=== PATIENT | male | born 1975 | race African-American/Black ===

== ENCOUNTER 2019-12-03 00:18 | Outpatient (CLI) | payer OTHER, SELFPAY ==
[2019-12-03 18:07] LABS: SARS-CoV-2 RNA PCR Negative
== END 2019-12-03 00:19 | disposition home or self-care (01) ==
LOC: ANHCOVIDDT 00:28
PROVIDERS: Visit Provider Surgery
DX: Z01.818 Encounter for other preprocedural examination (principal); Z11.59 Encounter for screening for other viral diseases
CPT/HCPCS: 87635; C9803; U0003

== ENCOUNTER 2019-12-05 02:34 | Day surgery (SDC) | payer OTHER, SELFPAY ==
[2019-12-02 15:39] VITALS: BMI 41.5
--- NOTE | ~2019-12-05 | XR_ITS ---
EXAMINATION: XR fl guide central line place DATE: 12/05/2019 08:34 INDICATION: Port placement. TECHNIQUE: 2 intraoperative fluoroscopic views of the chest were obtained. I was not present. Fluoros copy exposure time was 41 seconds. COMPARISON: Chest single view 12/05/2019 FINDINGS: There is a right internal jugular port with tip in right atrium. IMPRESSION: 1. Port tip in right atrium. Reviewed, dictated and finalized at location A.
--- NOTE | ~2019-12-05 | XR_ITS ---
EXAMINATION: XR chest port-a-cath/central DATE: 12/05/2019 09:02 INDICATION: Port catheter insertion TECHNIQUE: frontal view of the chest was obtained. COMPARISON: None FINDINGS: Right internal jugular central venous port catheter with distal tip near the superior cavoatrial junc tion. Lungs are clear with no focal airspace opacities, pulmonary edema, pleural effusion or pneumoth orax. The cardiomediastinal silhouette is normal. IMPRESSION: 1. Right internal jugular central venous port catheter tip near the superior cavoatrial junction. 2. No acute cardiopulmonary disease. Reviewed, dictated and finalized at location A. IMPRESSION: 1. Right internal jugular central venous port catheter tip near the superior ca voatrial junction. 2. No acute cardiopulmonary disease.
[2019-12-05] MEDS: LACTATED RINGERS 1,000 ML 30 ML IV CONT (06:30)
[2019-12-05 06:33] LABS: Glucose Point of Care 107 (65-105)
[2019-12-05 06:43] LABS: Partial Thromboplastin Time 28.6 SECONDS (22.3-36.8)
--- NOTE | 2019-12-05 06:52 | P.PNAN_ITS ---
Anes - Initial Pre Proc Eval Procedure: Operation Date: 12/05/19 07:30 Proposed Procedures p Insertion Crystal Cath - Eddy Caldwell MD Date/Time: 12/05/19 06:52 Surgeon: Eddy Caldwell MD Pre Op Diagnosis: Colon Ca Patient Data Age: 44 Gender: M Height: 5 ft 9 in Weight: 127.46 kg Allergies Allergy/AdvReac Type Severity Reaction Status Date / Time No Known Allergies Allergy Verified 12/02/19 15:51 Home Medications Medication Instructions Recorded Confirmed Type metformin 1,000 mg PO BID 12/02/19 12/05/19 History Laboratory Tests 12/05/19 12/05/19 06:21 06:31 PT 13.0 Seconds Seconds (11.1-14.7) INR 1.0 APTT 28.6 SECONDS SECONDS (22.3-36.8) POC Capillary Glucose 107 mg/dl mg/dl (65-105) Patient hx anesthesia problems: none Family hx anesthesia problems: none [facility] Past Medical History Medical History (Updated 12/05/19 @ 06:52 by Tam Dubose MD) Diabetes KEI (obstructive sleep apnea) Social History Social History Smoking status: Never smoker Spiritual care concerns: No Anes - Eval Final PreProcedure Day of Procedure 12/05/19 06:52 Patient weight: morbidly obese Heart: regular rate and rhythm Lungs: clear to auscultation Airway: Mallampati scale class II Neurological: alert and oriented Last oral intake: >/= 8 hours ASA classification: III Emergent: no Anesthetic plan: proceed Anesthesia type and monitoring: general GIVS and standard monitoring Informed Consent: The patient's anesthetic plan and its attendant risks and benefits were discussed with the patient/family/POA. Questions were solicited and answers provided to the satisfaction of the patient/family/POA.
[2019-12-05 07:00] VITALS: BP 146/88; PULSE 72; TEMP 35.9; O2SAT 99
[2019-12-05] MEDS: KETOROLAC 15 MG/ML VIAL (*BKC) IV PUSH (07:09)
--- NOTE | 2019-12-05 07:10 | PM.HPGS ---
History of Present Illness History of Present Illness Consent: Risks, benefits, and alternatives of placement of a Port-A-Cath have been discussed and questions answered. Patient agrees to proceed with procedure. Chief complaint: Colon Ca Narrative: Beau Cuellar is a 44 year old male who has known diabetes and hypertension. He developed dark stool and then had colonoscopy in September of this year. 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 He has had about 15 lb of weight loss but is planning to proceed to chemotherapy with Dr. Vasquez and presents this time to have port placement. Review of Systems Constitutional: Constitutional: Reports no additional constitutional complaints, Reports fatigue and Denies malaise Eyes: Eyes: Denies change in vision and Denies loss of vision ENT: Reports Normal hearing present, Denies change in voice, Denies dizziness, Denies hoarseness and Denies sore throat Cardiovascular: Cardiovascular: Denies chest pain, Denies leg edema and Denies dyspnea Comments: Known history of hypertension controlled on medications Respiratory: Respiratory: Denies cough, Denies dyspnea and Denies wheezing Gastrointestinal: Gastrointestinal: Denies hematochezia, Denies change in bowel habits and Denies heartburn Genitourinary: Genitourinary: Denies urinary frequency and Denies urinary incontinence Neurologic: Reports Normal hearing present, Denies confusion, Denies dizziness, Denies loss of vision, Denies memory loss and Denies seizure-like activity Psychiatric: Psychiatric: Denies confusion, Denies depression and Denies memory loss Endocrine: Endocrine: Denies cold intolerance and Reports fatigue Comments: Type 2 diabetes mellitus on metformin Hematologic/Lymphatic: Hematologic/Lymphatic: Denies easy bleeding and Denies easy bruising Allergic/Immunologic: Allergic/Immunologic: Denies wheezing PMFSH Past Medical History Medical History (Updated 12/05/19 @ 07:14 by Eddy Caldwell MD) Diabetes (Unknown) HTN (hypertension) (Unknown) KEI (obstructive sleep apnea) Social History Social History Smoking status: Never smoker Spiritual care concerns: No Meds Home Medications and Allergies Home Medications Medication Instructions Recorded Confirmed Type metformin 1,000 mg PO BID 12/02/19 12/05/19 History Allergies Allergy/AdvReac Type Severity Reaction Status Date / Time No Known Allergies Allergy Verified 12/02/19 15:51 Exam Const: General: cooperative, healthy appearing, no acute distress, well developed and alert; No confusion Nutritional Appearance: well nourished Orientation/consciousness: patient oriented x3 and No confusion Limitations: no limitations HENMT: Head: normal to inspection, normocephalic and atraumatic Ears: hearing grossly normal bilaterally General nose exam: Normal external nose present Face and sinus: no edema Mouth: Yes Normal oral and palatal mucosa present and Yes lip normal Throat: posterior oropharynx normal Eyes: General: appearance normal, both eyes and all related structures Sclera: sclerae normal Pupils: Equal, round and reactive pupils present EOM: EOMs intact bilaterally Neck: Neck: normal visual inspection, no lymphadenopathy, trachea midline and supple Resp: Effort & Inspection: normal respiratory effort and able to speak in complete sentences Auscultation: clear to auscultation bilaterally Cardio: Jugular venous distension: no JVD Rate: regular rate Rhythm: regular rhythm GI: Inspection: normal to inspection and scar ( consistent with previous sigmoid colon resection.) GI Palp: Yes Soft to palpation, No Tenderness to palpation present (GI), No Guarding due to palpation present (GI) and No Palpable mass present A
[2019-12-05] MEDS: ceFAZolin 3 GM/D5W 100 ML 100 ML IVPB (07:31)
[2019-12-05] MEDS: BUPIVACAINE/EPINEPHRINE 0.5% 30 ML VIAL INFILTRATE (08:07)
[2019-12-05] MEDS: HEPARIN SODIUM 5,000 UNITS/ML VIAL 5000 UNITS IRRIGATION (08:07)
[2019-12-05 08:45] VITALS: BP 136/86; PULSE 89; RESP 20; O2SAT 100
--- NOTE | 2019-12-05 08:51 | PM.PROC ---
Procedure Note - Detailed Date of procedure: 12/05/19 Pre-op diagnosis: Colon Ca Procedure performed: placement of Port-A-Cath Description of procedure: Patient was seen and marked in the pre-op area prior to coming to the OR. Patient was brought to the operating room. He was placed supine on the operating table and general IV sedation was induced and an LMA was used. The nurse ict systems test engineer provided oxygen and IV sedation. Patient's head was carefully turned to the left side while in the supine position and the patient's entire neck and anterior chest on both sides was prepped and draped in the usual sterile fashion. Following this the appropriate time-out was completed confirming procedure and patient. We confirmed that all the needed equipment was present in the room. Following this the ultrasound probe was draped into the field and using the probe we carefully identified the carotid artery and jugular vein on the right neck. I marked the skin directly over the Rt. internal jugular vein. Following this, using the continuous ultrasound guidance, a Cook needle was placed through the skin into this vein. I then was able to draw back good dark blood. Once this was completed a guidewire using a J-tip was advanced through the needle and then the needle and the guidewire cover were withdrawn. C-arm fluoroscopy was used to confirm that the guidewire was nicely in the venous system. Once this was confirmed with the C - arm I preceded on by making the pocket for the port on the patient's anterior right chest approximately 3 centimeters below the clavicle overlying the chest wall. Local anesthetic was infiltrated into the skin where there was a transverse incision marked out. Incision was made and we made a pocket inferior to the incision with just a little dissection superior. The Smart port was tried in the pocket and seemed to fit well. Following this the catheter which had been placed on a tunneling device was tunneled from the port site on the anterior right chest up to the right neck where a small incision had been made with an #11 blade knife. Then the catheter was pulled through so that we would have 15 centimeters to put into the central venous system once the dilation took place. Following this we placed the dilator and sheath over the guidewire in the jugular vein and carefully dilated the tract into the central venous system. The guidewire and dilator were then removed, carefully covering the end of the sheath to prevent air embolus. The end of the catheter which had been cut off straight across and the tip checked was then inserted into the sheath and into the neck. I then carefully pulled the 2 arms of the tear-away sheath away as the assistant distribution manager held the catheter in position with a DeBakey forceps. Following this we checked the position of the catheter with C-arm fluoroscopy confirming that the tip seemed to be in the distal superior vena cava near the junction with the right atrium. I felt that it was in good position and so the rest of the catheter was pulled down toward the feet into the port site. We then measured to the appropriate position to cut the catheter to attach it to the port stem. Then the connector sealing device for the catheter port was placed onto the catheter and then the catheter cut to the appropriate length and inserted onto the stem of the port. Then the connector was advanced onto the stem over the catheter sealing it to the port. A single 3- 0 Prolene suture was also used during this to suture the connector to the port and to the underlying musculature. Following this at one other site the port was sutured to the underlying musculature with the 3-0 Proline. Both prior to connecting the catheter to the port and then using a straight Galvan needle following this connection, the port was aspirated of good dark blood and flushed with heparinized saline to keep the catheter from having any air in it and to confirm that it was still in
[2019-12-05 09:15] VITALS: BP 129/74; PULSE 74; RESP 20; O2SAT 96
--- NOTE | 2019-12-05 09:20 | SUR.PHASEII ---
0905; ICE PACK APPLIED TO RT UPPER CHEST AND NECK AREA.
[2019-12-05 09:45] VITALS: BP 123/77; PULSE 64; RESP 20
== END 2019-12-05 10:00 | disposition home or self-care (01) ==
PROVIDERS: Visit Provider Surgery
PROC: (CPT 36561; principal; 2019-12-05 07:30)
DX: C18.9 Malignant neoplasm of colon, unspecified (principal); E11.9 Type 2 diabetes mellitus without complications; G47.33 Obstructive sleep apnea (adult) (pediatric); Z79.84 Long term (current) use of oral hypoglycemic drugs; E66.01 Morbid (severe) obesity due to excess calories; Z68.41 Body mass index [BMI] 40.0-44.9, adult
CPT/HCPCS: 36561; 36415; 77001; 85610; 85730; A9270; C1788; J0690; J1644; J1885; J2250; J2704; J7030; J7120

== ENCOUNTER 2019-12-08 15:30 | Outpatient (CLI) | payer OTHER, SELFPAY ==
--- NOTE | ~2019-12-08 | CT_ITS ---
EXAMINATION: CT chest abdomen pelvis w con DATE: 12/08/2019 16:10 INDICATION: Malignant neoplasm of sigmoid colon. TECHNIQUE: Computed tomography (CT) of the chest, abdomen, and pelvis was performed with 100 mL Omnip aque 350 intravenous contrast. Automated exposure control and iterative reconstruction technique were employed. The dose-length product was 1663.00 mGy-cm. COMPARISON: None FINDINGS: CHEST CT: There is a 3 mm nodule in right upper lobe abutting the pleura, likely benign. No pleural effusion. T he heart size is normal. No pericardial effusion. There is a right internal jugular port with tip in right atrium. There are no pathologically enlarged lymph nodes. There are bridging endplate osteophyt es at multiple levels in the spine, consistent with diffuse idiopathic skeletal hyperostosis (DISH). ABDOMEN/PELVIS CT: The liver, spleen, gallbladder, pancreas, and adrenal glands are normal. There are cysts in the kidne ys measuring up to 8 mm on the right. The prostate is mildly enlarged. There is an anastomosis in the sigmoid colon. The appendix is normal. There are no dilated loops of bowel. There are no pathologica lly enlarged lymph nodes. There is no free intraperitoneal fluid. There is a right inguinal hernia co ntaining fat. Prominent fat in the left inguinal canal may be a hernia. There is mild lumbar spondylo sis. IMPRESSION: 1. No specific evidence of metastatic disease. Reviewed, dictated and finalized at location A.
== END 2019-12-08 15:31 | disposition home or self-care (01) ==
LOC: ANHIMG 15:32
PROVIDERS: PCP Internal Medicine; Visit Provider Internal Medicine Hematology & Oncology
DX: C18.7 Malignant neoplasm of sigmoid colon (principal)
CPT/HCPCS: 71260; 74177; Q9967

== ENCOUNTER 2020-03-29 08:40 | Outpatient (CLI) | payer OTHER, SELFPAY ==
[2020-03-29 17:21] LABS: Creatinine Urine 154.2 mg/dL
[2020-03-29 18:43] LABS: MALB Creatinine Ratio 353.5 mg/g (0-30); Microalbumin Urine Random 545.1 mg/L (0-16.7)
[2020-03-29 18:51] LABS: Hemoglobin A1C 7.2 % (<5.7)
[2020-03-29 18:59] LABS: Prostate Specific Antigen 1.2 ng/mL (< OR = 4.0)
== END 2020-03-29 08:41 | disposition home or self-care (01) ==
PROVIDERS: Referring Provider Family Medicine; Visit Provider Internal Medicine Hematology & Oncology
DX: E11.9 Type 2 diabetes mellitus without complications (principal); Z13.9 Encounter for screening, unspecified
CPT/HCPCS: 36415; 82043; 83036; 84153; G0103

== ENCOUNTER 2020-08-04 09:43 | Outpatient (CLI) | payer OTHER, SELFPAY ==
--- NOTE | ~2020-08-04 | CT_ITS ---
EXAMINATION: CT abdomen pelvis w con INDICATION: Malignant neoplasm of the sigmoid colon TECHNIQUE: Computed tomographic images of the abdomen and pelvis were obtained after the administrati on of 100 cc of Omnipaque 350 intravenous contrast. The dose-length product (DLP) was 1403.22 mGy-cm. Automated exposure control and iterative reconstruction technique were employed. COMPARISON: 12/08/2019 FINDINGS: The lung bases are clear. The heart size is normal. The liver, spleen, pancreas, gallbladde r, and adrenal glands are normal. Cysts of the kidneys measure up to 9 mm on the right. No pathologic ally enlarged abdominal or pelvic lymph nodes are identified. There is no free intraperitoneal gas or evidence of bowel obstruction. There are surgical changes in the sigmoid colon. An appendicolith is present in the otherwise normal appendix. There is mild lumbar spondylosis. IMPRESSION: 1. Surgical changes in the sigmoid colon without evidence of recurrent or metastatic disease. Reviewed, dictated and finalized at location A. RIAL CONTROL ASSOCIATE IMPRESSION: 1. Surgical changes in the sigmoid colon without evidence of recurrent or metas tatic disease.
[2020-08-04 10:07] LABS: Estimated Glomerular Filt Rate > 60
== END 2020-08-04 09:44 | disposition home or self-care (01) ==
PROVIDERS: PCP Family Medicine; Visit Provider Internal Medicine Hematology & Oncology
DX: C18.7 Malignant neoplasm of sigmoid colon (principal)
CPT/HCPCS: 74177; Q9967

== ENCOUNTER 2021-11-17 10:23 | Outpatient (CLI) | payer OTHER, SELFPAY ==
--- NOTE | ~2021-11-17 | CT_ITS ---
EXAMINATION: CT abdomen pelvis w con DATE: 11/17/2021 10:53 INDICATION: Malignant neoplasm of the sigmoid colon TECHNIQUE: Computed tomography (CT) of the abdomen and pelvis was performed with 100 mL Omnipaque-300 intravenous contrast. Automated exposure control and iterative reconstruction technique were employe d. The dose-length product was 1387.80 mGy-cm. COMPARISON: None FINDINGS: Lungs are clear. Normal heart size. Central venous catheter tip in the right atrium. No pericardial o r pleural effusion. Diffuse hepatic steatosis. Gallbladder, spleen, pancreas, bilateral adrenal gland s and left kidney are normal. Subcentimeter low-attenuation cyst at the upper pole of the right kidne y. Small calcified appendicolith in the midportion of the otherwise normal appendix with no periappen diceal inflammatory stranding to suggest acute appendicitis. Postoperative change of prior sigmoidect sandie with anastomotic suture line along the remaining sigmoid colon. No bowel obstruction. Bladder is normal. Mild prostatomegaly measuring 4.8 x 3.8 cm. No free intraperitoneal gas or fluid. No patholog ically enlarged abdominal or pelvic lymphadenopathy. There are bridging osteophytes at a few levels i n the visualized lower thoracic spine, consistent with diffuse idiopathic skeletal hyperostosis (DISH ). IMPRESSION: 1. Postoperative change of prior sigmoidectomy for reported colon cancer. No evident metastatic disea se. 2. Diffuse hepatic steatosis. 3. Calcified appendicolith within the normal appendix with no periappendiceal inflammatory stranding to suggest acute appendicitis. 4. Prostatomegaly. Reviewed, dictated and finalized at location B. IMPRESSION: 1. Postoperative change of prior sigmoidectomy for reported colon cancer. No ev ident metastatic disease. 2. Diffuse hepatic steatosis. 3. Calcified appendicolith within the normal appendix with no periappendiceal i nflammatory stranding to suggest acute appendicitis. 4. Prostatomegaly.
[2021-11-17 10:51] LABS: Estimated Glomerular Filt Rate > 60
== END 2021-11-17 10:24 | disposition home or self-care (01) ==
PROVIDERS: PCP Family Medicine; Visit Provider Internal Medicine Hematology & Oncology
DX: C18.7 Malignant neoplasm of sigmoid colon (principal); Z98.890 Other specified postprocedural states; K76.0 Fatty (change of) liver, not elsewhere classified; K38.1 Appendicular concretions; N40.0 Benign prostatic hyperplasia without lower urinary tract symptoms
CPT/HCPCS: 74177; Q9967

== ENCOUNTER 2022-06-01 08:59 | Outpatient (CLI) | payer OTHER, SELFPAY ==
--- NOTE | ~2022-06-01 | CT_ITS ---
CT Abdomen and Pelvis with contrast. History: Colon cancer. Spiral CT of the abdomen and pelvis was performed after the administration of intravenous contrast. 1 00 cc of Omnipaque 350 was administered intravenously without complication. Dose reduction technique was used on this scan by utilizing automated exposure control and iterative reconstruction technique. The dose-length product (DLP) was 1247.71 mGy-cm. COMPARISON: 11/17/2021 and 12/08/2019 Findings: Scans through the lung bases demonstrate mild atelectatic change. Diffuse fatty infiltration of the liver noted. The spleen, pancreas, gallbladder, left adrenal gland, and kidneys are within normal limits. Stable probable 9 mm right adrenal nodule. No evidence of aort ic aneurysm. No lymphadenopathy is seen. There is no evidence of bowel obstruction. Rectosigmoid anastomosis noted. Appendiculis present, but no evidence for acute appendicitis. Images through the pelvis were performed. Urinary bladder unremarkable. Prostate gland and seminal ve sicles are unremarkable. No ascites is seen. Impression: No evidence for active malignancy or metastatic disease. No change from prior exam. No definite recto sigmoid anastomosis, consider a prior colonic resection. Diffuse fatty infiltration of the liver. Stable probable 9 mm right adrenal nodule. Stability since November 2019 suggests benignity. Reviewed, dictated and finalized at location M. CTIOUS DISEASE PHYSICIAN Impression: No evidence for active malignancy or metastatic disease. No change from prior e xam. No definite rectosigmoid anastomosis, consider a prior colonic resection. Diffuse fatty infiltration of the liver. Stable probable 9 mm right adrenal nodule. Stability since November 2019 suggests b enignity.
== END 2022-06-01 09:00 | disposition home or self-care (01) ==
PROVIDERS: PCP Family Medicine; Visit Provider Internal Medicine Hematology & Oncology
DX: C18.7 Malignant neoplasm of sigmoid colon (principal); K76.0 Fatty (change of) liver, not elsewhere classified; E27.8 Other specified disorders of adrenal gland
CPT/HCPCS: 74177; Q9967

== ENCOUNTER 2022-11-08 08:59 | Outpatient (CLI) | payer OTHER, SELFPAY ==
--- NOTE | ~2022-11-08 | CT_ITS ---
EXAMINATION: CT abdomen pelvis w con INDICATION: Malignant neoplasm of the sigmoid colon TECHNIQUE: Computed tomographic images of the abdomen and pelvis were obtained after the administrati on of 100 cc of Omnipaque 350 intravenous contrast. The dose-length product (DLP) was 1329.18 mGy-cm. Automated exposure control and iterative reconstruction technique were employed. COMPARISON: 06/01/2022 FINDINGS: A right-sided catheter ends with its tip in the proximal right atrium. The lung bases are c lear. The heart size is normal. The liver, spleen, pancreas, gallbladder, and left adrenal gland are normal. There is a stable 9 mm nodule of the right adrenal gland, likely an adenoma. Cysts of the kid neys measure up to 7 mm on the right. No pathologically enlarged abdominal or pelvic lymph nodes are identified. No free intraperitoneal gas or evidence of bowel obstruction. Surgical changes are again noted in the sigmoid colon. A chronic appendicolith is noted in the otherwise normal appendix. There are bilateral inguinal hernias containing fat. There is mild lumbar spondylosis. IMPRESSION: 1. Stable surgical changes in the sigmoid colon without evidence of recurrent or metastatic disease. Reviewed, dictated and finalized at location A. IMPRESSION: 1. Stable surgical changes in the sigmoid colon without evidence of recurrent o r metastatic disease.
[2022-11-09 13:40] LABS: Estimated Glomerular Filt Rate > 60
== END 2022-11-08 09:00 | disposition home or self-care (01) ==
LOC: ANHIMG 17:58
PROVIDERS: PCP Family Medicine; Visit Provider Internal Medicine Hematology & Oncology
DX: C18.7 Malignant neoplasm of sigmoid colon (principal)
CPT/HCPCS: 74177; Q9967

== ENCOUNTER 2023-08-13 08:21 | Outpatient (CLI) | payer OTHER, SELFPAY ==
--- NOTE | ~2023-08-13 | CT_ITS ---
CT of the Abdomen and Pelvis: Indication: Colon cancer Technique: 2.5 mm axial scans were obtained through the abdomen and pelvis following intravenous adm inistration of 100 cc of Omnipaque 350. Dose reduction technique was used on this scan by utilizing a utomated exposure control and iterative reconstruction technique. The dose-length product (DLP) was 1 358.15 mGy-cm. COMPARISON: 11/08/2022 Findings: Scans through the lung bases are unremarkable. There is diffuse hepatic steatosis. The spleen, pancreas, gallbladder, adrenals and kidneys are withi n normal limits. No evidence of aortic aneurysm. No lymphadenopathy. No bowel obstruction or bowel wall thickening. There is an appendicolith of the base the appendix wit h appendix mildly dilated to 7 mm, but no inflammatory changes. Rectal anastomosis noted. Images through the pelvis were performed. Urinary bladder unremarkable. Small fat-containing right in guinal hernia present. No pelvic mass seen otherwise. No ascites. Impression: No evidence for active malignancy or metastatic disease. Borderline dilated appendix with appendicolith, but no inflammatory change. Findings are stable from prior exam. Correlate for any relevant symptoms which could indicate early appendicitis. Small fat-containing right inguinal hernia. Diffuse hepatic steatosis. Reviewed, dictated and finalized at location M. Impression: No evidence for active malignancy or metastatic disease. Borderline dilated appendix with appendicolith, but no inflammatory change. Fin dings are stable from prior exam. Correlate for any relevant symptoms which cou ld indicate early appendicitis. Small fat-containing right inguinal hernia. Diffuse hepatic steatosis.
[2023-08-13 08:45] LABS: Estimated Glomerular Filt Rate > 60
== END 2023-08-13 08:22 | disposition home or self-care (01) ==
PROVIDERS: PCP Family Medicine; Visit Provider Internal Medicine Hematology & Oncology
DX: K40.90 Unilateral inguinal hernia, without obstruction or gangrene, not specified as recurrent (principal); K76.0 Fatty (change of) liver, not elsewhere classified; C18.7 Malignant neoplasm of sigmoid colon
CPT/HCPCS: 36415; 74177; Q9967

== ENCOUNTER 2023-09-26 06:05 | Day surgery (SDC) | payer OTHER, SELFPAY ==
[2023-09-17 09:29] VITALS: BMI 25.2
--- NOTE | 2023-09-17 09:39 | SUR.PREOP ---
Report to the Outpatient Waiting Room, entrance under the green pavilion located off [facility], at time 0630 on date 09/26/23. Planned Procedure Time: 0830. Time changes happen often and if your time is changed the preop area will call you the afternoon before. - You and your visitor will be asked to self-screen and do not enter if you have any COVID symptoms. - A mask is optional within the hospital at this time. Patients may have clear liquids (water, carbonated beverages, clear teas, apple juice) until 3 hours prior to surgery with a maximum of 20 ounces. - No food from midnight until time of surgery Take the following medications with a SIP of water the morning of surgery: N/A DO NOT STOP ANY OF YOUR OTHER PRESCRIPTION MEDICATIONS PRIOR TO SURGERY ?EXCEPT THE FOLLOWING Medications to discontinue per physician STOP ANY SUPPLIMENTS 3 DAYS PRIOR Date to take last dose 09/22/23 Please no make-up, nail romanian, hairspray, perfume, deodorant, or body powder the day of surgery. No jewelry (including any body piercings) or valuables the day of surgery, leave them at home. Please take a shower or bath the night before, or the morning of, surgery with an antibacterial soap. Wear comfortable, loose fitting clothing. Children are encouraged to wear pajamas. - Jewelry must be removed prior to entering the operating room. Rings and piercings that are not removed may be cut off. - The hospital will not accept responsibility for valuables. - Please leave all valuables, including medications, at home the day of surgery. If you are going home after surgery, a licensed laborer driver must drive you home. - NO public transportation without another adult if you receive anesthesia. - We recommend that an adult stay with you for 24 hours following discharge. - We also recommend that you do not drive, make important decision, drink alcoholic beverages, or take any drugs that were not prescribed by your health care provider for at least 24 hours after your discharge time. Follow any additional instructions given to you from your surgeon. If you or anyone in your household have experienced Covid symptoms in the past week, please notify your surgeon or the nurse liaison at the phone number below for possible testing. Telephone instructions given to AMARI FLORES and asked if any additional questions and then verbalized understanding. Patient advised to call surgeon office or pre surgery nurse liaison [phone] if any additional questions.
--- NOTE | 2023-09-24 14:15 | PM.SD2 ---
Same Day Admit/Disch: HPI History of Present Illness Chief complaint: Port-A-Cath no longer needed Narrative: Beau Cuellar is a 48 year old male with history of stage III sigmoid colon cancer. He had a Port-A-Cath placed in November of 2019 for FOLFOX chemotherapy. Recent CT scan showed no evidence of persistent or recurrent disease. He is requesting to have the Port-A-Cath removed and is taken to surgery at this time for removal. [facility] Past Medical History Medical History (Updated 09/26/23 @ 09:42 by Shan Sandhu MD) Diabetes (Unknown) HTN (hypertension) (Unknown) KEI (obstructive sleep apnea) Surgical History Surgical History (Updated 09/26/23 @ 06:57 by James Damon MD) H/O colonoscopy Social History Social History Smoking status: Never smoker Living arrangements: with family Gender identity (if verbalized by the patient): Male Spiritual care concerns: No Same Day Admit/Disch: Med Pre-admit Medications Home Medications Medication Instructions Recorded Confirmed Type metformin 1,000 mg tablet 1,000 mg PO BID 12/02/19 09/17/23 History dapagliflozin propanediol 10 mg 10 mg PO DAILY 09/17/23 09/17/23 History tablet (Farxiga) lisinopril 5 mg tablet 5 mg PO DAILY 09/17/23 09/17/23 History semaglutide 3 mg tablet (Rybelsus) 3 mg PO DAILY 09/17/23 09/17/23 History tamsulosin 0.4 mg capsule 0.4 mg PO DAILY 09/17/23 09/17/23 History ibuprofen 600 mg tablet 600 mg PO Q6H PRN pain #14 tabs 09/26/23 Rx Review of Systems Review of Systems All systems reviewed & are unremarkable except as noted in HPI and below (HPI) Exam Const: General: comfortable, no acute distress, alert and awake HENMT: Head: normocephalic and atraumatic Mouth: Yes Normal oral and palatal mucosa present Eyes: Conjunctivae: conjunctivae normal Pupils: Equal, round and reactive pupils present EOM: EOMs intact bilaterally Neck: Neck: normal visual inspection, no lymphadenopathy and nontender Chest: Chest palpation & inspection: abnormal inspection of the chest (Right anterior chest shows Port-A-Cath reservoir and scar from insertion), no crepitus, no tenderness and No rash Resp: Effort & Inspection: normal respiratory effort Auscultation: clear to auscultation bilaterally Cardio: Rate: regular rate Rhythm: regular rhythm Heart sounds: no gallops, no murmurs and no rubs GI: Inspection: non-distended GI Palp: Yes Soft to palpation, No Tenderness to palpation present (GI), No Hepatomegaly present and No Splenomegaly present Skin: Lesions: no lesions Rashes: no rashes Neuro: General: no focal motor deficits and CN's II-XI intact bilaterally Cranial nerves: Yes Equal, round and reactive pupils present, Yes Bilaterally intact EOM present, Yes facial symmetry and Yes Midline tongue present Speech: normal speech Motor exam (neuro): 5/5 motor strength present throughout and Motor abnormalities not present Extrem: General: no clubbing, cyanosis or edema and edema Psych: Affect: normal affect Thought process: Normal thought process present Insight: Good insight present (Psych) DS: Summary Time Spent with Patient Time attestation: Total time spent providing and/or coordinating discharge services: DS: Admitting Diagnosis Discharge Date 09/26/2023 Admitting Diagnosis Stage III sigmoid colon cancer, status post resection and chemotherapy Right internal jugular Port-A-Cath no longer [id number] to be removed today under anesthesia as an outpatient. I have discussed the procedure with the patient. All questions were answered. He understands and agrees to go ahead. Type 2 diabetes not on insulin Essential hypertension BPH with obstruction DS: Discharge Diagnosis Discharge Diagnosis (1) Port-A-Cath in place: Code(s): Z95.828 - Presence of other vascular implants and grafts Status: Acute Assessment and Plan: Removed by Dr. Scott
[2023-09-26 06:30] VITALS: BP 119/87; PULSE 60; RESP 16; TEMP 36.1; O2SAT 98
--- NOTE | 2023-09-26 06:56 | WPDANESEPPF ---
Anes - Initial Pre Proc Eval Procedure: Operation Date: 09/26/23 08:30 Proposed Procedures p Removal Crystal Cath - Shan Sandhu MD Date/Time: 09/26/23 06:56 Surgeon: Shan Sandhu MD Pre Op Diagnosis: Port-A-Cath no longer needed Patient Data Age: 48 Gender: M Height: 1.75 m Weight: 77.56 kg Allergies Allergy/AdvReac Type Severity Reaction Status Date / Time No Known Allergies Allergy Verified 09/17/23 09:24 Home Medications Medication Instructions Recorded Confirmed Type metformin 1,000 mg tablet 1,000 mg PO BID 12/02/19 09/17/23 History dapagliflozin propanediol 10 mg 10 mg PO DAILY 09/17/23 09/17/23 History tablet (Farxiga) lisinopril 5 mg tablet 5 mg PO DAILY 09/17/23 09/17/23 History semaglutide 3 mg tablet (Rybelsus) 3 mg PO DAILY 09/17/23 09/17/23 History tamsulosin 0.4 mg capsule 0.4 mg PO DAILY 09/17/23 09/17/23 History Patient hx anesthesia problems: none Family hx anesthesia problems: none Results Review: All pre-operative results and documents have been reviewed as part of the pre-operative evaluation. [facility] Past Medical History Medical History (Updated 09/26/23 @ 06:57 by James Damon MD) Diabetes (Unknown) HTN (hypertension) (Unknown) KEI (obstructive sleep apnea) Port-A-Cath in place Surgical History Surgical History (Updated 09/26/23 @ 06:57 by James Damon MD) H/O colonoscopy Social History Social History Smoking status: Never smoker Living arrangements: with family Gender identity (if verbalized by the patient): Male Spiritual care concerns: No Anes - Eval Final PreProcedure Day of Procedure 09/26/23 06:56 Patient weight: overweight Heart: regular rate and rhythm Lungs: clear to auscultation Airway: Mallampati scale class II Neurological: alert and oriented Last oral intake: >/= 8 hours ASA classification: III Emergent: no Anesthetic plan: proceed Anesthesia type and monitoring: general GIVS and standard monitoring Results Review: All pre-operative results and documents have been reviewed as part of the pre-operative evaluation. Informed Consent: The patient's anesthetic plan and its attendant risks and benefits were discussed with the patient/family/POA. Questions were solicited and answers provided to the satisfaction of the patient/family/POA.
[2023-09-26] MEDS: LACTATED RINGERS 1,000 ML 30 ML IV CONT (07:30)
[2023-09-26 07:36] VITALS: BMI 39.2
[2023-09-26 07:41] LABS: Glucose Point of Care 188 mg/dl (65-105)
--- NOTE | 2023-09-26 08:19 | WPDHPUPDATE1 ---
History and Physical Update Update Date/Time: 09/26/23 08:19 History and Physical has been reviewed, including an updated exam of the patient. There are NO changes in the patient's condition. Risks, benefits, and alternatives have been discussed and questions answered. Patient agrees to proceed with procedure.
[2023-09-26] MEDS: ceFAZolin 3 GM/D5W 100 ML 100 ML IVPB (08:40)
--- NOTE | 2023-09-26 08:45 | SUR.PREOP ---
0845- Call to circulating RN Klaudia and informed her patient was taken back to OR without Ancef 3GM IVPB. Per Klaudia, RN she did not need antibiotic brought into OR because [facility] will dose patient with ANCEF in OR from their stock.
[2023-09-26] MEDS: BUPIVACAINE/EPINEPHRINE 0.5% 50 ML VIAL 10 ML INFILTRATE (09:05)
--- NOTE | 2023-09-26 09:23 | W.PM.PROC2 ---
Procedure Note - Detailed Date of Procedure 09/26/23 Pre-op Diagnosis Port-A-Cath no longer needed Post-op Diagnosis Same Procedure Performed Removal right sided Smart Port CT Surgeon Shan Sandhu MD Geography Instructor GUNNER Arellano Anesthesia General (G IV S) Indications Patient is a 48-year-old man who had stage III colon cancer. He had a Port-A-Cath placed 4 years ago and received chemotherapy. He currently has no evidence of disease and is taken to surgery now for removal of his right-sided Port-A-Cath. Findings Intact Port-A-Cath removed without difficulty Description of Procedure Patient was taken to surgery and the right upper chest was prepped and draped. The previous scar was noted an ellipse was marked just around the scar. Local was infiltrated in the area of the lips and into the subcutaneous tissue around the Port-A-Cath. The old scar was then excised. Cautery was used for hemostasis. Dissection was carried down to the reservoir. I then sharply dissected the fiber sheath from the Port-A-Cath and cut the suture holding the Port-A-Cath in place. I then gently removed the Port-A-Cath. It was intact as could be seen by the blue end on the catheter tubing. There was back bleeding from the tract. This bleeding was stopped with a mattress suture of 4-0 Vicryl. The wound was made hemostatic with cautery. Wound was closed in layers with 4-0 Vicryl suture. The skin was closed with running 4-0 Monocryl skin suture. The wound was dressed with Exofin surgical adhesive. The patient was awakened and taken to outpatient surgery in good condition. Sponge and needle counts were correct x2. Estimated Blood Loss -5 Drains No Packing No Pathology None sent Complications No immediate complications Condition Stable Disposition Same day [facility] Billing Surgery - Charge Forward: Surgery Billing (CPT CODE 32810, REMOVAL PORT-A-CATH)
[2023-09-26 09:25] VITALS: BP 114/74; PULSE 72; O2SAT 96
[2023-09-26 09:36] LABS: Glucose Point of Care 191 mg/dl (65-105)
[2023-09-26 09:55] VITALS: BP 117/74; PULSE 58; O2SAT 99
[2023-09-26 10:21] VITALS: BP 134/80; PULSE 56
== END 2023-09-26 10:22 | disposition home or self-care (01) ==
PROVIDERS: PCP Family Medicine; Visit Provider Surgery
PROC: (CPT 36589; principal; 2023-09-26 08:30)
DX: Z45.2 Encounter for adjustment and management of vascular access device (principal); Z85.038 Personal history of other malignant neoplasm of large intestine; Z92.21 Personal history of antineoplastic chemotherapy; Z90.49 Acquired absence of other specified parts of digestive tract; I10 Essential (primary) hypertension; E11.9 Type 2 diabetes mellitus without complications; G47.33 Obstructive sleep apnea (adult) (pediatric); N40.1 Benign prostatic hyperplasia with lower urinary tract symptoms; N13.9 Obstructive and reflux uropathy, unspecified; Z79.84 Long term (current) use of oral hypoglycemic drugs
CPT/HCPCS: 36590; 82948; J0690; J1100; J2250; J2405; J2704; J3010; J7030; J7120